=== PATIENT | female | born 1970 | race Caucasian/White ===

== ENCOUNTER 2022-04-09 19:33 | Emergency (ER) | payer OTHER ==
[~2022-04-09] VITALS: Ht 167.6 cm; Wt 131.5 kg
== END 2022-04-09 22:05 | disposition home or self-care (01) ==
LOC: ER 19:42
DX: M79.661 Pain in right lower leg (principal); S80.811A Abrasion, right lower leg, initial encounter; R07.89 Other chest pain; W22.09XA Striking against other stationary object, initial encounter; Y93.01 Activity, walking, marching and hiking; Y92.89 Other specified places as the place of occurrence of the external cause; J45.909 Unspecified asthma, uncomplicated; Z98.84 Bariatric surgery status
CPT/HCPCS: 99283

== ENCOUNTER 2022-08-07 14:44 | Emergency (ER) | payer OTHER ==
[~2022-08-07] VITALS: Ht 167.6 cm; Wt 144.2 kg
[2022-08-07] MEDS ORDERED: ULTRAM 50MG50 MG PO (15:43)
== END 2022-08-07 15:55 | disposition home or self-care (01) ==
LOC: FSED 14:54
DX: S00.83XA Contusion of other part of head, initial encounter (principal); W50.0XXA Accidental hit or strike by another person, initial encounter; Y93.84 Activity, sleeping; Y92.89 Other specified places as the place of occurrence of the external cause; E03.9 Hypothyroidism, unspecified; J45.909 Unspecified asthma, uncomplicated; Z98.84 Bariatric surgery status
CPT/HCPCS: 99282